=== PATIENT | female | born 1960 | race Caucasian/White ===

== ENCOUNTER → 2024-10-11 14:50 | Outpatient (REF) | payer MEDICARE, OTHER, SELFPAY | LOC: HWRAD 14:50 | PROVIDERS: ATTENDING PHYSICIAN Physician Assistant | DX: M79.672 Pain in left foot (principal) | CPT/HCPCS: 73630 ==

== ENCOUNTER → 2024-10-28 10:58 | Outpatient (REF) | payer MEDICARE, OTHER, SELFPAY | LOC: DHSLP 10:58 | PROVIDERS: ATTENDING PHYSICIAN Internal Medicine Critical Care Medicine; FAMILY PHYSICIAN Physician Assistant | DX: G47.33 Obstructive sleep apnea (adult) (pediatric) (principal) | CPT/HCPCS: 95800 ==

== ENCOUNTER → 2024-11-17 12:51 | Outpatient (REF) | payer MEDICARE, OTHER, SELFPAY | LOC: HWWDC 12:51 | PROVIDERS: ATTENDING PHYSICIAN Physician Assistant; REFERRING PHYSICIAN Obstetrics & Gynecology | DX: Z12.31 Encounter for screening mammogram for malignant neoplasm of breast (principal) | CPT/HCPCS: 77063; 77067 ==

== ENCOUNTER → 2025-06-29 12:59 | Outpatient (REF) | payer MEDICARE, OTHER, SELFPAY | LOC: HWCARD 12:59 | PROVIDERS: ATTENDING PHYSICIAN Student in an Organized Health Care Education/Training Program; FAMILY PHYSICIAN Physician Assistant | DX: Z01.818 Encounter for other preprocedural examination (principal) | CPT/HCPCS: 93005 ==

== ENCOUNTER → 2025-06-30 15:49 | Outpatient (REF) | payer MEDICARE, OTHER, SELFPAY | LOC: HWRAD 15:49 | PROVIDERS: ATTENDING PHYSICIAN Internal Medicine | DX: R05.1 Acute cough (principal); Z01.818 Encounter for other preprocedural examination | CPT/HCPCS: 71046 ==

== ENCOUNTER → 2025-07-06 15:13 | Outpatient (REF) | payer MEDICARE, OTHER, SELFPAY | LOC: HWRAD 15:13 | PROVIDERS: ATTENDING PHYSICIAN Anesthesiology; FAMILY PHYSICIAN Physician Assistant | DX: M54.16 Radiculopathy, lumbar region (principal) | CPT/HCPCS: 72100 ==

== ENCOUNTER 2025-07-07 23:45 | Inpatient (IN) | payer MEDICARE, OTHER, SELFPAY ==
[2025-07-07] VITALS (9 sets, daily range): BP systolic 115–173; BP diastolic 51–76
[2025-07-07] MEDS: TYLENOL 1000 MG PO (17:09)
[2025-07-07] MEDS: CELEBREX 200 MG PO (17:10)
[2025-07-07] MEDS: NORMOSOL-R/PLASMALYTE-A 1000 IV (17:12)
--- NOTE | 2025-07-07 22:36 | W.PN.SURGUPD ---
Surgical Update
Surgical Update
64 yo M s/p L tibialis anterior tendon repair with grafting
-Strict NWB to LLE
-PT/OT
-Multimodal analgesia, on morphine 30mg BID at home
-Posterior splint to remain C/D/I
-Ancef while admitted
-Can be discharged 07/08 or when appropriate
--- NOTE | 2025-07-07 22:41 | HPS.HSE ---
Addendum entered and electronically signed by Luigi Tavares MD 07/07/25 23:31:
This is an addendum to H&P written by Christine Westbrook on 07/07/2025. �Patient seen and examined independently with [employer].
64-year-old female past medical history of rheuumatoid arthritis, hypertension, hyperlipidemia, osteoarthritis, obesity, obstructive sleep apnea, breast cancer, varicose veins, depression, cervical spondylosis, fibromyalgia, GERD, who underwent left
tibialis anterior tendon repair today.
Strict nonweightbearing to left lower extremity in splint. �Continue Ancef while in hospital. �Pain control. �Continue morphine 30 twice daily. �As needed Dilaudid as needed. �PT/OT.
Hold Eliquis tonight.�
Original Note:
Family Physician
-
Family Physician: NO INTERVIEW UNKNOWN
Chief Complaint
-
L tibialis anterior tendon repair with grafting
History of Present Illness
Patient is a 64-year-old female with past medical history significant for hypertension, hyperlipidemia, hypothyroid, restless leg syndrome, depression, fibromyalgia, rheumatoid arthritis, GERD and GLORIA who presented to [facility] for elective L tibialis
anterior tendon repair with grafting with Dr. Lauren. Patient being admitted s/p surgical repair for pain control and physical therapy. Patient seen in PACU and remains lethargic.
Medical History
Past Medical History
Past Medical History: Reports Other
Additional Past Medical History:
hypertension
hyperlipidemia
hypothyroid
restless leg syndrome
depression
fibromyalgia
rheumatoid arthritis
GERD
GLORIA
Past Surgical History: Reports Other
Additional Past Surgical History:
cholecystectomy
LASIK
bunionectomy
D&C x3
bilateral knee surgeries
bilateral carpal tunnel release
right lumpectomy
left shoulder repair
Social History
Tobacco: Non-smoker
Family History
Family History: Not pertinent
Allergies / Home Medications
Allergies reflects when Allergies were last updated in [employer].
Home Medications with original date entered in [employer]
Allergy/Medication List:
Allergies
Allergy/AdvReac Type Severity Reaction Status Date / Time
acetaminophen (From Percocet) Allergy Unknown SEVERE Verified 07/07/25 16:44
PRURITUS
adhesive Allergy ERYTHEMA Verified 07/07/25 16:44
bupropion HCl (From Allergy SEIZURE Verified 07/07/25 16:44
Wellbutrin)
hydrocodone (Hydrocodone) Allergy PRURITUS Verified 07/07/25 16:44
lisinopril Allergy COUGH Verified 07/07/25 16:44
oxycodone Allergy PRURITUS Verified 07/07/25 16:44
oxycodone HCl (From Percocet) Allergy PRURITUS Verified 07/07/25 16:44
povidone-iodine (From Allergy ERYTHEMA, Verified 07/07/25 16:44
Betadine) PRURITUS
rosuvastatin calcium (From Allergy MYALGIA Verified 07/07/25 16:44
Crestor)
soap (From Betadine) Allergy ERYTHEMA, Verified 07/07/25 16:44
PRURITUS
Home Medications
loratadine 10 mg disintegrating tablet 10 mg PO DAILY 02/22/11
ezetimibe 10 mg tablet (Zetia) 10 mg PO DAILY 12/24/11
Medical Cannabis 1 unit PO PRN PRN PAIN 07/05/25
apixaban 5 mg tablet (Eliquis) 5 mg PO BID 07/05/25
leucovorin calcium 15 mg tablet 15 mg PO WEEKLY 07/05/25
levothyroxine 25 mcg tablet 25 mcg PO DAILY 07/05/25
methotrexate sodium 2.5 mg tablet 25 mg PO QWEEK 07/05/25
metoprolol succinate 50 mg tablet,extended release 24 hr 50 mg PO HS 07/05/25
morphine 30 mg tablet,extended release 30 mg PO Q12H 07/05/25
prednisone 5 mg tablet 5 mg PO HS 07/05/25
quetiapine 25 mg tablet 50 mg PO HS INSOMNIA 07/05/25
Review of Systems
-
Unable to obtain full review of systems at this time due to: Other (lethargic post anesthesia )
Physical Exam
Vital Signs
Vital Signs
Temp Pulse Resp BP Pulse Ox
98.5 F 72 16 133/62 95
07/07/25 16:57 07/07/25 18:58 07/07/25 18:58 07/07/25 18:58 07/07/25 18:58
Physical Exam
General: Well Developed, Well Nourished, No Apparent Distress and Obese
HEENT: NormoCephalic, Moist mucous membranes and Atraumatic
Respiratory: Clear and Non Labored Respirations; No Wheezes, Rales, Rhonchi or Crackles
Cardiac: S1/S2 and Regular Rhythm; No Murmur, Rub or Gallop
Breast: Deferred by me
GI: Soft, Non Tender, Non Distended and Normal Bowel Sounds; No Organomegaly
Rectal: Deferred by Provider
Genito-urinary: Deferred by me
Musculoskeletal: No Clubbing and No Cyanosis
Skin: Warm and IV/Catheter Site
Neuro: Awake, Nonfocal/grossly intact and Sedated
Psych: Calm and Intact Judgment/Insight
Impression/Plan
-
IMPRESSION/PLAN:
#L tibialis anterior tendon repair with grafting
- Admit to med/surg
- Consult Podiatry
- pain regimen
- Consult PT/OT
#hypertension
- continue metoprolol
#hyperlipidemia
- continue ezetimibe
#hypothyroid
- continue levothyroxine
#fibromyalgia
- continue morphine
#rheumatoid arthritis
- continue methotrexate and prednisone
#GLORIA
uses CPAP at home
#GERD
#restless leg syndrome
#depression
Code status: full code
DVT prophylaxis: SCDs
[2025-07-08] VITALS (9 sets, daily range): BP systolic 127–152; BP diastolic 57–79; PULSE 89; O2SAT 96
[2025-07-08] MEDS: MS CONTIN (EXTENDED RELEASE) 30 MG PO ×3 (00:57→22:10)
[2025-07-08] MEDS: DILAUDID 0.25 MG IV (01:06)
[2025-07-08] MEDS: FLUSH (NSS) 2 FLUSH IV ×2 (01:07→06:07)
--- NOTE | 2025-07-08 03:08 | PTCARENOTE ---
Patient received from PACU via bed. at bedside. She was oriented to room and surroundings. IV infusing. Nghia po intake. See nursing assessment for physical findings. VSS. Ax1 with RW to BSC. NWB LLE. Did well. SCD per order.
Splint cast with umang wrap C/D/I
[2025-07-08] MEDS: SYNTHROID 25 MCG PO (06:06)
[2025-07-08] MEDS: ANCEF 5 IV ×3 (06:06→21:15)
[2025-07-08 06:37] LABS: Hematocrit 38.3 % (37.0-47.0); Hemoglobin 12.6 g/dL (12.0-16.0); Mean Corp Hgb Conc. 32.9 g/dL (33.0-37.0); Mean Corpuscular Volume 97.5 fL (81.0-99.0); Platelet Count 220 10^3/uL (130-400); Red Cell Dist. Width 14.4 % (11.5-14.5)
[2025-07-08 07:34] LABS: Blood Urea Nitrogen 11 mg/dl (7-17); Calcium 8.7 mg/dl (8.4-10.2); Carbon Dioxide 28 mmol/L (22-30); Chloride 105 mmol/L (98-107); Estimated Creatinine Clearance 103 ml/min; Glucose 164 mg/dl (70-99); Potassium 4.6 mmol/L (3.5-5.1); Sodium 139 mmol/L (135-145); eGFR > 60.00
[2025-07-08] MEDS: CLARITIN 10 MG PO (08:46)
[2025-07-08] MEDS: ZETIA 10 MG PO (08:47)
--- NOTE | 2025-07-08 10:28 | W.PN.HOSP.TC ---
Today's Communication/Plan
-
DC planning
Assessment / Plan
Assessment / Plan
#L tibialis anterior tendon repair with grafting
- Continue with pain regimen
- Consult PT/OT-await assessment
#hypertension
- continue metoprolol
#hyperlipidemia
- continue ezetimibe
#hypothyroid
- continue levothyroxine
#fibromyalgia
- continue morphine
#rheumatoid arthritis
- continue methotrexate and prednisone
#GLORIA
uses CPAP at home
#GERD
#restless leg syndrome
#depression
Code status: full code
DVT prophylaxis: Subcu heparin
DVT prophylaxis on dc per ortho/podiatry
Medically stable for DC after PT/OT eval and Podiatry eval
Anticipated Discharge: Today
Subjective/Interval History
-
Date of Service: July 08, 2025
She feels okay.
Denies any shortness of breath, chest pain or lightheadedness.
Had some breakfast.
Pain from the left ankle surgical site is okay
Objective Data
-
Labs:
Laboratory Results
07/08/25
05:48
WBC 6.9
Hgb 12.6
Hct 38.3
Plt Count 220
Sodium 139
Potassium 4.6
Chloride 105
Carbon Dioxide 28
BUN 11
Creatinine 0.6
Glucose 164 H
Calcium 8.7
Vital Signs:
Vital Signs
Temp Pulse Resp BP Pulse Ox
98.4 F 75 16 131/62 94
07/08/25 07:58 07/08/25 07:58 07/08/25 07:58 07/08/25 07:58 07/08/25 09:05
I&O
07/07/25 07/08/25 07/09/25
06:59 06:59 06:59
Intake Total 2059
Balance 2059
Physical Exam
-
General: Comfortable
Respiratory: Clear to Auscultation and Non Labored Respirations; Negative Accessory Resp Muscle Use
Cardiac: Regular Rhythm and S1/S2
Neuro: AO x 3
Psych: Calm; Negative Confused
Data Reviewed
-
Labs: Labs Reviewed by me
[2025-07-08] MEDS: ZOFRAN ODT (ORALLY DISINTEGRATING) 4 MG PO (14:04)
[2025-07-08] MEDS: TYLENOL 650 MG PO (14:05)
[2025-07-08] MEDS: HEPARIN 5000 UNITS SC ×2 (16:37→23:05)
--- NOTE | 2025-07-08 17:08 | CM ---
Initial assessment completed via phone
Pharmacy verified: [facility] @ [address] [facility], [place]
Family Physician: Alexandra House; Address: [address] [place] [address], [place] [address];
Lives w/ spouse; multilevel home; Ramp to enter; in-law suite first floor; bath has shower stall w/ grab bar and seat
DME: CPAP; hospital bed; commode; WC
PLOF: was independent with ambulation and ADLs
No recent utilization Home Health or SNF history
will transport home
Agreeable to home health; options provided; [facility]
Plan: Discharge to home when medically stable with home health services
[2025-07-08] MEDS: SEROQUEL 50 MG PO (21:15)
[2025-07-08] MEDS: TOPROL XL 50 MG PO (21:15)
[2025-07-08] MEDS: DELTASONE 5 MG PO (21:15)
--- NOTE | 2025-07-08 23:36 | W.PN.SURGUPD ---
Surgical Update
Surgical Update
64 yo F s/p left tibialis anterior tendon repair with grafting
-Patient seen and evaluated at bedside, recovering well
-Pain is well controlled
-Posterior splint C/D/I
-Doing well with physical therapy
-To consider supplemental morphine for pain control on discharge. Also will need tylenol, gabapentin, zofran
-ASA for DVT prophylaxis
-OK for discharge, follow up at [facility] in 2 weeks
[2025-07-09] MEDS: SYNTHROID 25 MCG PO (05:20)
[2025-07-09] MEDS: ANCEF 5 IV ×3 (05:25→21:15)
[2025-07-09 07:20] VITALS: BP 162/75
[2025-07-09] MEDS: DILAUDID 0.5 MG IV (07:54)
[2025-07-09] MEDS: ZETIA 10 MG PO (10:36)
[2025-07-09] MEDS: HEPARIN 5000 UNITS SC (10:36)
[2025-07-09] MEDS: CLARITIN 10 MG PO (10:36)
[2025-07-09] MEDS: MS CONTIN (EXTENDED RELEASE) 30 MG PO ×2 (10:45→22:07)
--- NOTE | 2025-07-09 12:41 | CM ---
Addendum entered by Mirian Root 07/09/25 12:48:
VM left for VN to confirm discharge.
Original Note:
Patient seen at bedside on . Patient for discharge home today with VN to follow. Patient with questions, nursing aware. Patient completed imm and signed form placed on chart. Patient family to provide transportation. Patient with concerns
nursing aware, patient asking for OT assessment. CM will continue to follow for discharge planning needs.
Plan;home with [facility]
[2025-07-09 13:18] VITALS: BP 169/79; PULSE 77; O2SAT 96
[2025-07-09 13:38] LABS: Hematocrit 39.4 % (37.0-47.0); Hemoglobin 13.3 g/dL (12.0-16.0); Mean Corp Hgb Conc. 33.8 g/dL (33.0-37.0); Mean Corpuscular Volume 98.3 fL (81.0-99.0); Platelet Count 193 10^3/uL (130-400); Red Cell Dist. Width 14.8 % (11.5-14.5)
--- NOTE | 2025-07-09 13:55 | W.PN.HOSP.TC ---
Today's Communication/Plan
-
Continue with IV Ancef and follow fever curve
Started on her Eliquis
Assessment / Plan
Assessment / Plan
#L tibialis anterior tendon repair with grafting
- Continue with pain regimen
- Consult PT/OT-recommend home health
- Patient on chronic morphine. Consider breakthrough pain medicine on discharge. Allergies noted to multiple narcotics. Consider Dilaudid oral on discharge
- Low-grade fever noted today. Continue with Ancef which is prescribed. White count is okay today. Continue to follow today and if no further fevers or any new issues DC in a.m.
#hypertension
- continue metoprolol
#hyperlipidemia
- continue ezetimibe
#hypothyroid
- continue levothyroxine
#fibromyalgia
- continue morphine
#rheumatoid arthritis
- continue methotrexate and prednisone
#GLORIA
uses CPAP at home
# History of DVT-was on Eliquis 2.5 mg. Apparently was told by her oncologist to go up to 5 mg twice daily
#GERD
#restless leg syndrome
#depression
Code status: full code
DVT prophylaxis: Eliquis
Anticipated Discharge: Within 24 hours
Subjective/Interval History
-
Date of Service: July 09, 2025
Has a low-grade temp 100.2. She just does not feel generally well. No sweats or chills.
Denies any shortness of breath or chest pain.
No nausea vomiting.
Left ankle pain control is okay.
Objective Data
-
Labs:
Laboratory Results
07/09/25 07/09/25
13:19 13:46
WBC 10.8
Hgb 13.3
Hct 39.4
Plt Count 193
Sodium Cancelled Pending
Potassium Cancelled Pending
Chloride Cancelled Pending
Carbon Dioxide Cancelled Pending
BUN Cancelled Pending
Creatinine Cancelled Pending
Glucose Cancelled Pending
Calcium Cancelled Pending
Vital Signs:
Vital Signs
Temp Pulse Resp BP Pulse Ox
100.2 F 70 18 162/75 97
07/09/25 11:22 07/09/25 07:20 07/09/25 07:20 07/09/25 07:20 07/09/25 07:20
I&O
07/08/25 07/09/25 07/10/25
06:59 06:59 06:59
Intake Total 2059 1200 / 1200 480 / 480
Balance 2059 1200 / 1200 480 / 480
Physical Exam
-
General: Comfortable
Respiratory: Non Labored Respirations; Negative Accessory Resp Muscle Use
Cardiac: Regular Rhythm and S1/S2; Negative Tachycardic
Neuro: AO x 3
Psych: Calm; Negative Confused
Data Reviewed
-
Labs: Labs Reviewed by me
[2025-07-09 14:42] LABS: Blood Urea Nitrogen 16 mg/dl (7-17); Calcium 9.0 mg/dl (8.4-10.2); Carbon Dioxide 30 mmol/L (22-30); Chloride 104 mmol/L (98-107); Estimated Creatinine Clearance 88 ml/min; Glucose 129 mg/dl (70-99); Potassium 3.9 mmol/L (3.5-5.1); Sodium 139 mmol/L (135-145); eGFR > 60.00
[2025-07-09 15:15] VITALS: BP 178/70
[2025-07-09 16:01] VITALS: BP 149/62
[2025-07-09] MEDS: TYLENOL 650 MG PO ×2 (16:21→20:45)
[2025-07-09 17:01] LABS: Urine Character Clear (Clear)
[2025-07-09 17:14] LABS: Urine Red Blood Cell 0-2 /HPF (0-2); Urine Squamous Cell 16-20 /LPF (Few)
--- NOTE | 2025-07-09 17:46 | OR.RPT ---
Operative Report
Operative Report
Patient Name:�Clarita Beck
Medical Record Number:�[id number]
Date of Surgery:�07/07/2025
Surgeon:�Luis E Lauren DPM
Assistants:�Luis E Ott DPM
Preoperative Diagnosis:
Left tibialis anterior tendon rupture
Postoperative Diagnosis:
Same as preoperative
Procedure Performed:
Reconstruction of tibialis anterior tendon using cadaveric tibialis anterior tendon allograft CPT 26809
Anesthesia:�General with regional block
Hemostasis:�Thigh tourniquet at 300mmHg which remained inflated for the entirety of the procedure
Estimated Blood Loss:�<50 mL
Implants:
Cadaveric tibialis anterior tendon allograft
Arthrex Bio-Tenodesis screw 4.75mm
#0 FiberLoop suture
Materials:�2-0 vicryl, 3-0 vicryl, 3-0 prolene
Complications: None
Indications for Procedure:
The patient is a 64 year old female who sustained a subacute rupture of the left tibialis anterior tendon approximately 1 month ago, with proximal retraction to the level of the extensor retinaculum. No distal insertion stump was identifiable. This
was confirmed by MRI. Because of the lack of a viable distal attachment and significant tendon retraction, primary repair was not possible. Reconstruction using a cadaveric tibialis anterior tendon graft was indicated to restore dorsiflexion
strength and gait function. Risks, benefits, and alternatives were discussed with the patient, and informed consent was obtained.
Description of Procedure:
The patient was brought to the operating room and placed supine on the operating table. Following induction of anesthesia, the left lower extremity was prepped and draped in the usual sterile manner. A thigh tourniquet was applied and inflated after
exsanguination.
A longitudinal incision was made over the anteromedial ankle extending to the medial cuneiform, exposing the tibialis anterior tendon sheath. Intraoperative inspection confirmed �rupture of the tibialis anterior tendon, with the tendon retracted to
the level of the extensor retinaculum and no distal insertional stump present at the kaltag insertion.
The retracted tendon was retrieved and mobilized proximally. The frayed edges were sharply debrided until healthy tendon tissue was visualized. A cadaveric tibialis anterior tendon allograft was prepared on the back table. Using a #0 FiberLoop
suture in whip-stitch fashion, the cadaveric tendon graft was tenodesed to the distal portion of the kaltag tibialis anterior tendon under appropriate tension.
Attention was turned to the medial cuneiform, where a ems helicopter pilot hole was created at the dorsal aspect of the bone. The free distal end of the cadaveric tendon was secured into the medial cuneiform using an appropriately sized (4.75mm) Arthrex
Bio-Tenodesis screw, achieving excellent fixation.
The construct was tested through a full range of ankle motion and demonstrated good tension, stability, and bahai of the line of pull of the tibialis anterior.
The wound was thoroughly irrigated with sterile saline. Hemostasis was achieved. The tendon sheath was reapproximated using 2-0 vicryl, followed by layered closure of subcutaneous tissues with 3-0 vicryl and skin with 3-0 prolene. Sterile dressings
were applied, and the extremity was immobilized in a well-padded splint with the ankle in slight dorsiflexion. The patient tolerated the procedure well. She was aroused from anesthesia and taken to the recovery room in good condition. She will be
post-operatively admitted for pain control and physical therapy. She will remain on antibiotics for roughly 24 hours while admitted. She will be strictly non-weightbearing to the left lower extremity and will follow up in the office in 2 weeks for
an incision check.
[2025-07-09] MEDS: ELIQUIS 5 MG PO (20:25)
[2025-07-09] MEDS: DELTASONE 5 MG PO (21:14)
[2025-07-09] MEDS: SEROQUEL 50 MG PO (21:14)
[2025-07-09] MEDS: TOPROL XL 50 MG PO (21:15)
[2025-07-09 23:07] VITALS: BP 100/42
[2025-07-09 23:15] VITALS: BP 136/55
[2025-07-10] MEDS: SYNTHROID 25 MCG PO (05:02)
[2025-07-10] MEDS: ANCEF 5 IV (05:03)
--- NOTE | 2025-07-10 06:29 | PTCARENOTE ---
07/09/25 pt developed at fever 102.1 shivering with chills, placed CPAP with 2l to sleep., reexamine leg. + popiteal pulses,+ sensation no increased pain in calf or drainage on the dressage, notified Robin Alonso. UA/CS ordered. fever up to 103.1,
recheck after APAP 101.1
[2025-07-10 07:32] LABS: Hematocrit 38.9 % (37.0-47.0); Hemoglobin 12.8 g/dL (12.0-16.0); Mean Corp Hgb Conc. 32.9 g/dL (33.0-37.0); Mean Corpuscular Volume 96.8 fL (81.0-99.0); Platelet Count 156 10^3/uL (130-400); Red Cell Dist. Width 15.2 % (11.5-14.5)
[2025-07-10 08:25] VITALS: BP 162/60
[2025-07-10] MEDS: ZETIA 10 MG PO (08:54)
[2025-07-10] MEDS: CLARITIN 10 MG PO (08:54)
[2025-07-10] MEDS: ELIQUIS 5 MG PO ×2 (08:54→19:58)
[2025-07-10] MEDS: TYLENOL 650 MG PO ×3 (08:55→18:26)
--- NOTE | 2025-07-10 10:24 | PHA.VAN.IN ---
Assessment
- Assessment
Renal Function: Appears similar to baseline
Maximum Temperature: 103.1 F
AUC Dosing Plan
- Dosing Variables
Dosing Weight (kg): 90
Dosing CrCl (ml/min): 88
Vd coefficient (L/kg): 0.7
- Empiric Dosing
Initial / Loading Dose: VANCO 2000MG X1
Maintenance Regimen: VANCO 1000MG Q12H
Estimated AUC (mcg*h/mL): 426
Estimated Peak (mcg*h/mL): 26.2
Estimated Trough (mcg/ml): 11.2
Estimated Half Life (H): 8.9
- Monitoring
No levels ordered at this time: CONSIDER LEVELS AT STEADY STATE
Pharmacokinetics Vancomycin I
- -
Patient Age: 64
Patient Sex: Female
Vancomycin Day #: 1
Indication: Skin And Soft Tissue
Requesting Provider: DR. BABCOCK
Height / Weight:
Height 5 ft 5.25 in
Actual Weight 89.811 kg
Adjusted BW in k
Pertinent Past Medical History: BMI 33
- Vital Signs / Lab Results
Temp Pulse Resp BP Pulse Ox
101 F H 77 16 162/60 96
07/10/25 09:58 07/10/25 08:25 07/10/25 08:25 07/10/25 08:25 07/10/25 08:25
Lab Results - Hematology
07/08/25 07/09/25 07/10/25
05:48 13:19 06:50
WBC 6.9 10.8 4.6 L
Lab Results - Chemistry
07/08/25 07/09/25 07/09/25
05:48 13:19 14:20
BUN 11 Cancelled 16
Creatinine 0.6 Cancelled 0.7
Estimated Creat Clear 103 Cancelled 88
Lab Results - Urine
07/09/25
16:48
Urine Nitrite (Reflex) Negative
Leukocyte Esterase Rfl 1+ A
Urine WBC (Reflex) 3-5
Ur Squamous Epith Cells 16-20
Urine Bacteria (Reflex) Few A
[2025-07-10 10:38] LABS: ALT (SGPT) 47 U/L (0-35); AST (SGOT) 44 U/L (14-36); Albumin 4.0 g/dl (3.5-5.0); Alkaline Phosphatase 65 U/L (38-126); Total Protein 6.5 g/dl (6.3-8.2)
[2025-07-10] MEDS: ZOFRAN ODT (ORALLY DISINTEGRATING) 4 MG PO (11:40)
[2025-07-10] MEDS: VANCOCIN 540 MG IV (11:40)
[2025-07-10] MEDS: MS CONTIN (EXTENDED RELEASE) 30 MG PO ×2 (11:40→22:22)
--- NOTE | 2025-07-10 12:07 | W.PN.HOSP.TC ---
Today's Communication/Plan
-
Obtain chest x-ray. Check blood cultures. Check LFTs
Check COVID and flu.
Switch antibiotics to Zosyn and vancomycin until culture data is back. [employer] to review the left foot surgical wound.
Assessment / Plan
Assessment / Plan
#L tibialis anterior tendon repair with grafting
- Continue with pain regimen
- Consult PT/OT-recommend home health
- Patient on chronic morphine. Consider breakthrough pain medicine on discharge. Allergies noted to multiple narcotics. Consider Dilaudid oral on discharge
# Post op fever - since yesterday . UA doesn't suggest UTI. Check CXR, blood cx and due to non specific symptoms will also check COVID/Flu . If all neg CT A/P . Will change antibiotics to Zosyn and vancomycin for now. [employer] made aware about
new fever; podiatry to review the wound
#hypertension
- continue metoprolol . Mostly under goal with occasional high. Follow for now. Prn hydralazine will be added.
#hyperlipidemia
- continue ezetimibe
#hypothyroid
- continue levothyroxine
#fibromyalgia
- continue morphine
#rheumatoid arthritis
- continue methotrexate and prednisone
#GLORIA
uses CPAP at home
# History of DVT-was on Eliquis 2.5 mg. Apparently was told by her oncologist to go up to 5 mg twice daily
#GERD
#restless leg syndrome
#depression
Code status: full code
DVT prophylaxis: Eliquis
Anticipated Discharge: > 48 hours
Subjective/Interval History
-
Date of Service: July 10, 2025
Patient still with ongoing fevers. She just feels unwell. Feels weaker.
No sinus symptoms. Denies any sore throat. Denies any cough or shortness of breath.
Nauseous today. No abdominal pain. Denies any diarrhea. Denies any dysuria or frequency of urine.
Denies pain discharge from the left ankle incisions area.
Objective Data
-
Labs:
Laboratory Results
07/09/25 07/10/25
14:20 06:50
WBC 4.6 L
Hgb 12.8
Hct 38.9
Plt Count 156
Total Bilirubin 0.6
AST 44 H
ALT 47 H
Alkaline Phosphatase 65
Vital Signs:
Vital Signs
Temp Pulse Resp BP Pulse Ox
101 F H 77 16 162/60 96
07/10/25 09:58 07/10/25 08:25 07/10/25 08:25 07/10/25 08:25 07/10/25 08:25
I&O
07/09/25 07/10/25 07/11/25
06:59 06:59 06:59
Intake Total 1200 / 1200 1680 / 1680
Balance 1200 / 1200 1680 / 1680
Physical Exam
-
General: Comfortable
Respiratory: Clear to Auscultation and Non Labored Respirations; Negative Accessory Resp Muscle Use
Cardiac: Regular Rhythm and S1/S2; Negative Tachycardic
GI: Soft, Nondistended, Normal Bowel Sounds and Tender (some discomfort in LUQ and left abdomen but no rebound or guarding)
Musculoskeletal: Other (left leg in surgical dressing)
Neuro: AO x 3
Psych: Calm
Data Reviewed
-
Labs: Labs Reviewed by me
[2025-07-10 13:13] LABS: COVID-19 Antigen Negative (Negative)
[2025-07-10 13:22] VITALS: BP 145/57
[2025-07-10] MEDS: NSS 1000 IV (13:57)
[2025-07-10] MEDS: OMNIPAQUE 50 ML PO (13:57)
[2025-07-10 15:05] VITALS: BP 140/62; PULSE 80; O2SAT 98
[2025-07-10 15:10] VITALS: BP 152/53
--- NOTE | 2025-07-10 15:36 | PTCARENOTE ---
completed contrast drinks
[2025-07-10] MEDS: VANCOCIN 200 IV (17:11)
--- NOTE | 2025-07-10 17:57 | PTCARENOTE ---
TT with Dr. Kelly regarding pt remaining febrile 101.1 to 103. still today. pt is lethargic this AM, lungs CTA, no SOB or ROWE no cough. Dr. Kelly ordered additional test and labs. ABT started. Reaching out to Dr. Lauren to see if he needed to
evaluate leg today for source of fever. He will take down dressing tomorrow. Has not c/o leg pain and do not assess any redness or drainage on dressing but cannot visual incision site. No calf tenderness
[2025-07-10] MEDS: DILAUDID 0.5 MG IV (18:30)
[2025-07-10] MEDS: NON-FORMULARY ITEM 1 UNIT PO (18:45)
[2025-07-10] MEDS: DELTASONE 5 MG PO (22:19)
[2025-07-10] MEDS: SEROQUEL 50 MG PO (22:19)
[2025-07-10] MEDS: TOPROL XL 50 MG PO (22:22)
[2025-07-10 23:00] VITALS: BP 121/51
[2025-07-11] MEDS: NSS 1000 IV (04:39)
[2025-07-11] MEDS: SYNTHROID 25 MCG PO (06:12)
[2025-07-11] MEDS: VANCOCIN 200 IV (06:12)
[2025-07-11 07:30] VITALS: BP 133/54
--- NOTE | 2025-07-11 07:56 | W.PN.SURGUPD ---
Surgical Update
Surgical Update
64 yo F s/p left tibialis anterior tendon rupture repair with cadaveric graft
-Patient persistent fevers over the weekend ranged from 101 to 103. No obvious signs of infection at this time
-Patient seen and evaluated at bedside. Posterior splint and dressings remained and incision inspected
-Incision well coapted with absolutely no signs of infection. No erythema, fluctuance, crepitus, purulence, or wound opens
-No pain upon calf compression, no signs of DVT
-Re-applied DSD and posterior splint
-Continue antibiotics and will closely monitor
-Continue strict NWB to LLE
[2025-07-11 08:01] LABS: ALT (SGPT) 91 U/L (0-35); AST (SGOT) 96 U/L (14-36); Albumin 3.0 g/dl (3.5-5.0); Alkaline Phosphatase 60 U/L (38-126); Blood Urea Nitrogen 7 mg/dl (7-17); Calcium 8.3 mg/dl (8.4-10.2); Carbon Dioxide 30 mmol/L (22-30); Chloride 103 mmol/L (98-107); Estimated Creatinine Clearance 103 ml/min; Glucose 126 mg/dl (70-99); Potassium 4.1 mmol/L (3.5-5.1); Sodium 133 mmol/L (135-145); Total Protein 5.4 g/dl (6.3-8.2); eGFR > 60.00
[2025-07-11 08:25] LABS: Hematocrit 38.0 % (37.0-47.0); Hemoglobin 12.5 g/dL (12.0-16.0); Mean Corp Hgb Conc. 32.9 g/dL (33.0-37.0); Mean Corpuscular Volume 96.7 fL (81.0-99.0); Platelet Count 95 10^3/uL (130-400); Red Cell Dist. Width 15.1 % (11.5-14.5)
[2025-07-11] MEDS: CLARITIN 10 MG PO (09:23)
[2025-07-11] MEDS: ZETIA 10 MG PO (09:23)
[2025-07-11] MEDS: NON-FORMULARY ITEM 1 UNIT PO ×2 (09:23→15:42)
[2025-07-11] MEDS: ELIQUIS 5 MG PO ×2 (09:23→20:25)
[2025-07-11 11:05] VITALS: BP 140/57; PULSE 76; O2SAT 96
--- NOTE | 2025-07-11 11:15 | W.PN.HOSP.TC ---
Today's Communication/Plan
-
Follow-up on the culture data
Tylenol for fever
monitor temperature curve
ID input
Assessment / Plan
Assessment / Plan
#L tibialis anterior tendon rupture repair with cadaveric graft
- Continue with pain regimen
- Consult PT/OT-recommend home health
- Patient on chronic morphine. Consider breakthrough pain medicine on discharge. Allergies noted to multiple narcotics.
# Post op fever -
-urine culture no growth.
- Chest x-ray with atelectasis. No infiltrate. Denies any cough.
- Blood cultures remain negative. Influenza negative. COVID-negative.
- CT abdomen pelvis noted without any abscess.
- Discussed with surgery and surgical site deemed not infected currently.
- Patient was prophylactically started on antibiotics and continues to spike fever.
-Unclear if inflammatory response as underwent extensive surgery. Check ESR/CRP.
-No severe RLE edema. Doubt DVT as has already on anticoagulation. Drug fever is a possibility. Not on Lovenox.
- Will ask ID input
# Acute thrombocytopenia
- Likely second inflammatory response versus infection related
- Drop in platelet noted. Continue to monitor.
#hypertension
- continue metoprolol . Mostly under goal with occasional high. Follow for now.
#hyperlipidemia
- continue ezetimibe
#hypothyroid
- continue levothyroxine
#fibromyalgia
- continue morphine
#rheumatoid arthritis
- continue methotrexate and prednisone
#GLORIA
uses CPAP at home
# History of DVT-continue Eliquis
#GERD
#restless leg syndrome
#depression
Code status: full code
DVT prophylaxis: Eliquis
Anticipated Discharge: > 48 hours
Subjective/Interval History
-
Date of Service: July 11, 2025
Had bowel movements earlier today
Denies any cough. Denies any rash.
Denies any dysuria.
Denies any abdominal pain. Denies any nausea.
Spiked fever earlier today.
States she is using her CPAP machine at nighttime
Objective Data
-
Labs:
Laboratory Results
07/11/25
06:52
WBC 3.9 L
Hgb 12.5
Hct 38.0
Plt Count 95 L D
Sodium 133 L
Potassium 4.1
Chloride 103
Carbon Dioxide 30
BUN 7
Creatinine 0.6
Glucose 126 H
Calcium 8.3 L
Total Bilirubin 0.9
AST 96 H
ALT 91 H
Alkaline Phosphatase 60
Vital Signs:
Vital Signs
Temp Pulse Resp BP Pulse Ox
102.4 F H 76 18 133/54 95
07/11/25 11:04 07/11/25 07:30 07/11/25 07:30 07/11/25 07:30 07/11/25 07:30
I&O
07/10/25 07/11/25 07/12/25
06:59 06:59 06:59
Intake Total 1680 / 1680 1700 / 1700
Output Total 200 / 200
Balance 1480 / 1480 1700 / 1700
Physical Exam
-
General: Well Developed, Well Nourished, No Apparent Distress and Comfortable
HEENT: Normocephalic, Atraumatic and Moist Mucous Membranes
Respiratory: Clear to Auscultation and Non Labored Respirations; Negative Accessory Resp Muscle Use
Cardiac: Regular Rhythm and S1/S2; Negative Tachycardic
GI: Soft, Nondistended and Normal Bowel Sounds
Musculoskeletal: Other (left leg in surgical dressing)
Neuro: Awake, Alert, Oriented, AO x 3 and No Motor Deficits
Psych: Calm
Data Reviewed
-
Total Time Spent with Patient (in minutes): 55
[2025-07-11] MEDS: MS CONTIN (EXTENDED RELEASE) 30 MG PO ×2 (11:30→22:25)
[2025-07-11] MEDS: TYLENOL 650 MG PO ×2 (11:30→15:41)
--- NOTE | 2025-07-11 12:47 | CON.ID ---
Consultation
-
Date/Time Consultation Requested: 07/11/25 0816
Date/Time Consultation Performed: 07/11/2025 1250
Requesting Provider: Dr. Cuevas
Performing Provider: Dr. Coleman
Reason for Consultation: Fever
Chief Complaint / Past History
History of Present Illness
Clarita Beck is a 64-year-old female being evaluated at the request of Dr. Cuevas in regards to fever. History is obtained from chart review, along with patient interview.
The patient reports that she has been dealing with left foot issues for several months and recently was in [place] on vacation when she sustained a tear of the left tibialis tendon. She returned from [place] around 06/11 and has been following with
Podiatry. She was brought to [facility] on 07/07, and underwent left tibialis tendon repair. 48 hours ago, she developed fever to 102.6, and has had intermittent spiking temperatures since. Infectious Diseases asked to comment upon further
workup.
At this initiation of fevers, she had been on cefazolin for approximately 48 to 72 hours. She has since been broadened to vancomycin and Ancef discontinued.
She reports that she does feel a fevers with noted sweats and feeling unwell. She denies any other pain. She denies any specific pain in the left foot area. She denies any chest pain, cough or congestion. No known sick contacts. She denies any
dysuria.
Past History
Additional Past Medical History:
RA
HTN
HLD
OA
GLORIA
Hx breast CA depression
Additional Past Surgical History:
Bilateral knee replacement
Cholecystectomy
LASEK surgery
Bunionectomy
D&C x 3
Right lumpectomy
Left shoulder surgery
Allergy History:
acetaminophen (From Percocet) Allergy (Unknown, Verified 07/07/25 16:44)
SEVERE PRURITUS
adhesive Allergy (Verified 07/07/25 16:44)
ERYTHEMA
bupropion HCl (From Wellbutrin) Allergy (Verified 07/07/25 16:44)
SEIZURE
hydrocodone (Hydrocodone) Allergy (Verified 07/07/25 16:44)
PRURITUS
lisinopril Allergy (Verified 07/07/25 16:44)
COUGH
oxycodone Allergy (Verified 07/07/25 16:44)
PRURITUS
oxycodone HCl (From Percocet) Allergy (Verified 07/07/25 16:44)
PRURITUS
povidone-iodine (From Betadine) Allergy (Verified 07/07/25 16:44)
ERYTHEMA, PRURITUS
rosuvastatin calcium (From Crestor) Allergy (Verified 07/07/25 16:44)
MYALGIA
soap (From Betadine) Allergy (Verified 07/07/25 16:44)
ERYTHEMA, PRURITUS
Medications Reviewed: Yes
Current Antibiotics:
Vancomycin (07/10�present)
Previously on cefazolin (07/07 - 07/09)
Social History
Tobacco: Non-Smoker
Alcohol: None
Drug: None
Personal:
Living: With Family
Employment: Retired
Family History
Family History: Not Pertinent
Review of Systems
Vital Signs
Temp Pulse Resp BP Pulse Ox
102.4 F H 76 18 133/54 95
07/11/25 11:04 07/11/25 07:30 07/11/25 07:30 07/11/25 07:30 07/11/25 07:30
Physical Exam
Physical Exam
Constitutional: No Acute Distress, Comfortable and Non-toxic
Head: Normocephalic
Eyes: Pupils Equal, Pupils Round, No Conjunctival Hemorrhage and Sclera Anicteric
Oral: No Thrush and No Ulcers
Cardiovascular: Regular Rate and S1/S2; Negative S3/S4 or Murmur
Pulmonary: Clear; Negative Wheezes, Rales or Rhonchi
Gastrointestinal: Soft, Non Tender, Non Distended, Normal Bowel Sounds, No Rebound and No Guarding
Genito-Urinary: Negative Qiu
Extremities: Negative Clubbing, Cyanosis or Erythema
Wound: Other (Left foot in Glen wrap and splinted.)
Neurological: Awake and Alert
Psychological: Calm
.
Lab / Diagnostic Study Results
07/11/25 06:52
07/11/25 06:52
Ur Squamous Epith Cells 16-20 /LPF (Few) 07/09/25 16:48
Microbiology Results
Micro:
07/10/25 10:55 Blood Culture - Preliminary
Blood/Venous No Growth in 24 hours- Final report to follow
07/10/25 10:21 Blood Culture - Preliminary
Blood/Venous No Growth in 24 hours- Final report to follow
07/09/25 16:48 Urine Culture - Final
Urine NO GROWTH
07/10/25 12:39 Influenza Types A & B (XENIA) - Final
Nasal Swab Negative for Influenza A & B, NAAT
Negative results must be combined with clinical observations
and patient history.
Nucleic Acid Amplification test (NAAT)performed on the
[employer] NOW platform.
07/10/25 COVID-19 Ag - Negative
Imaging:
07/10/2025 CT abdomen/pelvis with contrast: no significant acute abnormalities identified in the abdomen or pelvis. Please see full dictation for additional detail.
07/10/2025 CXR (2 view): no parenchymal opacification or vascular congestion. Please see full dictation for additional detail.
Assessment / Plan
Postop fever
S/p left tibialis tendon repair (07/07/2022)
Mild leukopenia
Mild elevation in LFTs
RA
HTN
HLD
OA
GLORIA
Hx breast CA
Depression
Recommendations:
Exam is nonrevealing for any infectious process.
Lack of white count speaks against an acute infection.
Suspect fever may be secondary to drug fever (cefazolin)
Discontinue further antibiotics for now.
Monitor temperature curve. Patient may still have fever for the next 24 to 48 hours; would watch closely.
Trend white count, platelets, LFTs.
--- NOTE | 2025-07-11 14:28 | CM ---
Addendum entered by Chaitanya Gaffney 07/11/25 14:33:
IMM reviewed, placed on chart, pt has a copy.
Original Note:
CM following re: discharge planning.
Reviewed pt's chart, met with pt and pt's at bedside.
Pt is s/p left tibialis anterior tendon rupture repair with cadaveric graft. Continue supportive care, strict NWB to LLE
PT and OT evaluations noted - Home PT/OT recommended. A referral to [facility] noted.
[facility] discharge instructions fax: [phone]
D/c plan: home with [facility] and family support.
CM will follow with discharge plan updates as hospitalization progresses
[2025-07-11 15:28] VITALS: BP 128/68
--- NOTE | 2025-07-11 16:38 | PN.CDI ---
CDI
- -
CDI:
Physician Documentation Request
Admit Date: 07/07/25 23:45
Dear Doctor Faith,
Clinical Indicators:
Patient admitted with left tibialis anterior tendon rupture; s/p repair 07/07.
Home medications include:Morphine 30 mg tablet,extended release 30 mg PO Q12H
07/11 PN, 'Patient on chronic morphine. Consider breakthrough pain medicine on discharge...Consider Dilaudid oral on discharge'
Based on the above, could you clarify in the progress notes, the appropriate diagnosis, if significant, that supports the above medication usage:
Opioid use with dependence
Opioid use only
Other
Use of terms such as suspected, likely, concern for, or probable (associated with a specific diagnosis that is being evaluated, monitored, or treated as if it exists) are acceptable and can be coded in the inpatient setting, when documented at the
time of discharge.
Thank you,
JOSE Gaona RN
CDI Specialist
available via tiger text
Please use your independent medical judgment in providing your response.
[2025-07-11] MEDS: DILAUDID 0.5 MG IV (18:28)
[2025-07-11] MEDS: DELTASONE 5 MG PO (22:17)
[2025-07-11] MEDS: TOPROL XL 50 MG PO (22:17)
[2025-07-11] MEDS: SEROQUEL 50 MG PO (22:17)
[2025-07-12] MEDS: TYLENOL 650 MG PO ×3 (01:37→20:53)
[2025-07-12] MEDS: SYNTHROID 25 MCG PO (06:06)
[2025-07-12 07:13] LABS: Blood Urea Nitrogen 6 mg/dl (7-17); Calcium 8.7 mg/dl (8.4-10.2); Carbon Dioxide 29 mmol/L (22-30); Chloride 106 mmol/L (98-107); Estimated Creatinine Clearance 103 ml/min; Glucose 119 mg/dl (70-99); Potassium 3.8 mmol/L (3.5-5.1); Sodium 139 mmol/L (135-145); eGFR > 60.00
[2025-07-12 07:17] LABS: Hematocrit 37.2 % (37.0-47.0); Hemoglobin 12.5 g/dL (12.0-16.0); Mean Corp Hgb Conc. 33.6 g/dL (33.0-37.0); Mean Corpuscular Volume 94.2 fL (81.0-99.0); Platelet Count 86 10^3/uL (130-400); Red Cell Dist. Width 14.8 % (11.5-14.5)
[2025-07-12 07:18] LABS: C-Reactive Protein 55.30 mg/L (0.0-10.00)
[2025-07-12 07:34] VITALS: BP 135/63
[2025-07-12 08:42] LABS: Nucleated Red Blood Cells % 0 %
[2025-07-12] MEDS: CLARITIN 10 MG PO (09:25)
[2025-07-12] MEDS: ELIQUIS 5 MG PO ×2 (09:25→20:53)
[2025-07-12] MEDS: ZETIA 10 MG PO (09:25)
[2025-07-12] MEDS: NON-FORMULARY ITEM 1 UNIT PO ×2 (09:26→17:29)
--- NOTE | 2025-07-12 09:31 | W.PN.ID1 ---
Date of Service
Date of Service: July 12, 2025
Today's Communication
Observe off antibiotics.
Assessment / Plan
Postop fever
S/p left tibialis tendon repair (07/07/2022)
Mild leukopenia
Mild elevation in LFTs
RA
HTN
HLD
OA
GLORIA
Hx breast CA
Depression
Recommendations:
Exam remains nonrevealing for any infectious process.
Temperature curve overall improving although slowly.
Lack of white count speaks against an acute infection.
Suspect fever may have been secondary to drug fever (cefazolin), although cannot rule out other medications at this time.
Observe off antibiotics.
Monitor temperature curve. Patient may still have fever for the next 24 to 48 hours; would watch closely.
Trend white count, platelets, LFTs.
Chief Complaint
-: Fever
Subjective / Review of Systems
Patient seen and examined. Denies any pain in the left leg. Notes ongoing fevers. Reports not feeling great, but no focal discomfort.
Vital Signs / Physical Exam
Vital Signs
Vital Signs
Temp Pulse Resp BP Pulse Ox
97.5 F 58 17 135/63 97
07/12/25 07:34 07/12/25 07:34 07/12/25 07:34 07/12/25 07:34 07/12/25 07:34
Physical Exam
Constitutional: No Acute Distress, Comfortable and Non-toxic
Cardiovascular: S1/S2; Negative S3/S4
Pulmonary: Non Labored
Gastrointestinal: Soft, Non Tender and Non Distended
Musculoskeletal: Other (Left leg/foot in splint and wrapped in Glen wrap.)
Skin: Negative Rash or Jaundice
Neurological: Awake and Alert
Psychological: Calm
Objective Data
Lab Data
Lab Results
07/12/25 06:17
07/12/25 06:17
ESR 20 mm/hour (0-20) 07/12/25 06:17
Estimated Creat Clear 103 ml/min 07/12/25 06:17
Total Bilirubin 0.9 mg/dl (0.2-1.3) 07/11/25 06:52
AST 96 U/L (14-36) H 07/11/25 06:52
ALT 91 U/L (0-35) H 07/11/25 06:52
Alkaline Phosphatase 60 U/L (38-126) 07/11/25 06:52
C-Reactive Protein 55.30 mg/L (0.0-10.00) H 07/12/25 06:17
Most recent labs reviewed.
Micro Results:
07/10/25 10:55 Blood Culture - Preliminary
Blood/Venous No Growth in 24 hours- Final report to follow
07/10/25 10:21 Blood Culture - Preliminary
Blood/Venous No Growth in 24 hours- Final report to follow
07/09/25 16:48 Urine Culture - Final
Urine NO GROWTH
07/10/25 12:39 Influenza Types A & B (XENIA) - Final
Nasal Swab Negative for Influenza A & B, NAAT
Negative results must be combined with clinical observations
and patient history.
Nucleic Acid Amplification test (NAAT)performed on the
[email or web address] platform.
Imaging:
07/10/2025 CT abdomen/pelvis with contrast: no significant acute abnormalities identified in the abdomen or pelvis. Please see full dictation for additional detail.
07/10/2025 CXR (2 view): no parenchymal opacification or vascular congestion. Please see full dictation for additional detail.
--- NOTE | 2025-07-12 10:56 | W.PN.HOSP.TC ---
Today's Communication/Plan
-
Monitor platelets
Monitor fever/temperature curve
Monitor off antibiotics
Assessment / Plan
Assessment / Plan
General: Well Developed, Well Nourished, No Apparent Distress and Comfortable
HEENT: Normocephalic, Atraumatic and Moist Mucous Membranes
Respiratory: Clear to Auscultation and Non Labored Respirations; Negative Accessory Resp Muscle Use
Cardiac: Regular Rhythm and S1/S2; Negative Tachycardic
GI: Soft, Nondistended and Normal Bowel Sounds
Musculoskeletal: Other (left leg in surgical dressing)
Neuro: Awake, Alert, Oriented, AO x 3 and No Motor Deficits
Psych: Calm
#L tibialis anterior tendon rupture repair with cadaveric graft
- Continue with pain regimen. Strict nonweightbearing to left lower extremity per surgery.
- Consult PT/OT-recommend home health
- Patient on chronic morphine.
# Post op fever -
-urine culture no growth.
- Chest x-ray with atelectasis. No infiltrate. Denies any cough.
- Blood cultures remain negative. Influenza negative. COVID-negative.
- CT abdomen pelvis noted without any abscess. WBC normal
- Discussed with surgery and surgical site deemed not infected currently.
- Patient was prophylactically started on antibiotics and continues to spike fever.
-Unclear if inflammatory response as underwent extensive surgery. ESR normal. CRP elevated could be postsurgery vs due to RA
-No severe RLE edema. Doubt DVT as has already on anticoagulation. Drug fever is a possibility. Not on Lovenox.
- Antibiotics has been discontinued. Monitor off antibiotics.
# Acute thrombocytopenia
- Likely second inflammatory response
- Drop in platelet noted. Continue to monitor.
#hypertension
- continue metoprolol .
#hyperlipidemia
- continue ezetimibe
#hypothyroid
- continue levothyroxine
#fibromyalgia
#Chronic opioid dependent daily basis
- continue morphine
#rheumatoid arthritis
- continue methotrexate and prednisone
#GLORIA
uses CPAP at home
# History of DVT-continue Eliquis
#GERD
#restless leg syndrome
#depression
Code status: full code
DVT prophylaxis: Eliquis
Anticipated Discharge: 24 - 48 hours
Subjective/Interval History
-
Date of Service: July 12, 2025
Currently on iPad
Mornings are difficult to get up
Spiked fever overnight
Objective Data
-
Labs:
Laboratory Results
07/12/25
06:17
WBC 3.2 L
Hgb 12.5
Hct 37.2
Plt Count 86 L
Sodium 139
Potassium 3.8
Chloride 106
Carbon Dioxide 29
BUN 6 L
Creatinine 0.6
Glucose 119 H
Calcium 8.7
Vital Signs:
Vital Signs
Temp Pulse Resp BP Pulse Ox
97.5 F 58 17 135/63 97
07/12/25 07:34 07/12/25 07:34 07/12/25 07:34 07/12/25 07:34 07/12/25 07:34
I&O
07/11/25 07/12/25 07/13/25
06:59 06:59 06:59
Intake Total 1700 / 1700 1610 / 1610
Balance 1700 / 1700 1610 / 1610
--- NOTE | 2025-07-12 11:20 | CM ---
Patient seen at bedside on . Patient states she will be discharged tomorrow tentatively and that she will go home with [facility] to follow. CM will continue to follow for discharge planning needs.
Plan; home with [facility] to follow
[facility] discharge instructions fax: [phone]
[2025-07-12] MEDS: MS CONTIN (EXTENDED RELEASE) 30 MG PO ×2 (11:28→22:40)
[2025-07-12] MEDS: DILAUDID 1 MG PO (14:50)
[2025-07-12 15:00] VITALS: BP 144/73
[2025-07-12 16:48] VITALS: BP 124/61; PULSE 68; O2SAT 96
[2025-07-12] MEDS: TOPROL XL 50 MG PO (22:39)
[2025-07-12] MEDS: DELTASONE 5 MG PO (22:39)
[2025-07-12] MEDS: SEROQUEL 50 MG PO (22:39)
[2025-07-12 23:12] VITALS: BP 123/48
[2025-07-13] MEDS: SYNTHROID 25 MCG PO (06:01)
[2025-07-13 07:20] VITALS: BP 144/67
[2025-07-13 07:57] LABS: Hematocrit 36.8 % (37.0-47.0); Hemoglobin 12.3 g/dL (12.0-16.0); Mean Corp Hgb Conc. 33.4 g/dL (33.0-37.0); Mean Corpuscular Volume 94.6 fL (81.0-99.0); Platelet Count 77 10^3/uL (130-400); Red Cell Dist. Width 14.9 % (11.5-14.5)
[2025-07-13] MEDS: ZETIA 10 MG PO (08:02)
[2025-07-13] MEDS: CLARITIN 10 MG PO (08:02)
[2025-07-13] MEDS: ELIQUIS 5 MG PO (08:02)
[2025-07-13] MEDS: NON-FORMULARY ITEM 1 UNIT PO (08:04)
[2025-07-13 08:10] LABS: Blood Urea Nitrogen 7 mg/dl (7-17); Calcium 8.8 mg/dl (8.4-10.2); Carbon Dioxide 32 mmol/L (22-30); Chloride 107 mmol/L (98-107); Estimated Creatinine Clearance 103 ml/min; Glucose 122 mg/dl (70-99); Potassium 3.9 mmol/L (3.5-5.1); Sodium 141 mmol/L (135-145); eGFR > 60.00
--- NOTE | 2025-07-13 11:20 | W.PN.HOSP.TC ---
Addendum entered and electronically signed by Dmitriy Cuevas MD 07/13/25 12:26:
Discussed with infectious disease okay for discharge
Discussed with patient about low platelets and transaminitis. Patient states that she has been followed as outpatient for transaminitis which is chronic.
Recommended to repeat blood work with outpatient primary doctor to assess platelet levels. Patient also requesting additional pain medication for breakthrough pain and states she was able to tolerate Dilaudid. States she was allergic to
hydrocodone and oxycodone.
More than 30 minutes spent in discharge including
Final examination of the patient
Summarizing hospital stay
Instructions for continuing care to all relevant caregivers
Preparation of discharge records, prescriptions, and referral forms
Total time spent (in minutes): 53
Original Note:
Today's Communication/Plan
-
Continue to monitor temperature curve
ID recs
Pain control
Assessment / Plan
Assessment / Plan
General: Well Developed, Well Nourished, No Apparent Distress and Comfortable
HEENT: Normocephalic, Atraumatic and Moist Mucous Membranes
Respiratory: Clear to Auscultation and Non Labored Respirations; Negative Accessory Resp Muscle Use
Cardiac: Regular Rhythm and S1/S2; Negative Tachycardic
GI: Soft, Nondistended and Normal Bowel Sounds
Musculoskeletal: Other (left leg in surgical dressing)
Neuro: Awake, Alert, Oriented, AO x 3 and No Motor Deficits
Psych: Calm
#L tibialis anterior tendon rupture repair with cadaveric graft
- Continue with pain regimen. Strict nonweightbearing to left lower extremity per surgery.
- Consult PT/OT-recommend home health
- Patient on chronic morphine. 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
# Post op fever -
-urine culture no growth.
- Chest x-ray with atelectasis. No infiltrate. Denies any cough.
- Blood cultures remain negative. Influenza negative. COVID-negative.
- CT abdomen pelvis noted without any abscess. WBC normal
- Discussed with surgery and surgical site deemed not infected currently.
- Patient was prophylactically started on antibiotics and continues to spike fever and ID evaluation was requested.
-Unclear if inflammatory response as underwent extensive surgery. ESR normal. CRP elevated could be postsurgery vs due to RA
-No severe RLE edema. Doubt DVT as has already on anticoagulation. Drug fever is a possibility. Not on Lovenox.
-Antibiotics has been discontinued. Monitor off antibiotics. Frequency of fever has significantly decreased.
# Acute thrombocytopenia
- Likely secondary inflammatory response
- Drop in platelet noted. Continue to monitor. Will need repeat cbc as outpatient. Could also be due to methotrexate which she takes as outpatient
#hypertension
- continue metoprolol .
#hyperlipidemia
- continue ezetimibe
#hypothyroid
- continue levothyroxine
#fibromyalgia
#Chronic opioid dependent daily basis
- continue morphine
#rheumatoid arthritis
- Continue with prednisone. Hold methotrexate till platelets stabilizes.
#GLORIA
uses CPAP at home
# History of DVT-continue Eliquis
#GERD
#restless leg syndrome
#depression
Code status: full code
DVT prophylaxis: Eliquis
PT Home VN
Anticipated Discharge: Today
Subjective/Interval History
-
Date of Service: July 13, 2025
Eating breakfast currently without any difficulty. Denies increasing amount of pain in the left leg.
Wants to go home
Remains without cough, diarrhea, shortness of breath, abdominal pain.
Objective Data
-
Labs:
Laboratory Results
07/13/25
07:14
WBC 3.7 L
Hgb 12.3
Hct 36.8 L
Plt Count 77 L
Sodium 141
Potassium 3.9
Chloride 107
Carbon Dioxide 32 H
BUN 7
Creatinine 0.6
Glucose 122 H
Calcium 8.8
Vital Signs:
Vital Signs
Temp Pulse Resp BP Pulse Ox
97.8 F 61 16 144/67 99
07/13/25 07:20 07/13/25 07:20 07/13/25 07:20 07/13/25 07:20 07/13/25 07:20
I&O
07/12/25 07/13/25 07/14/25
06:59 06:59 06:59
Intake Total 1610 / 1610 1380 / 1380 240 / 240
Balance 1610 / 1610 1380 / 1380 240 / 240
--- NOTE | 2025-07-13 11:24 | W.PN.ID1 ---
Date of Service
Date of Service: July 13, 2025
Today's Communication
continue off abx.
Assessment / Plan
Postop fever
S/p left tibialis tendon repair (07/07/2022)
Mild leukopenia
Mild elevation in LFTs
RA
HTN
HLD
OA
GLORIA
Hx breast CA
Depression
Recommendations:
Exam remains nonrevealing for any infectious process.
Temperature curve overall improving.
Lack of white count speaks against an acute infection.
Suspect fever may have been secondary to drug fever (cefazolin), although cannot rule out other medications at this time.
Observe off antibiotics.
Would have PCP follow-up with LFTs and CBC as an outpatient.
Chief Complaint
-: Fever
Subjective / Review of Systems
Patient seen and examined. Overall feels well. For potential discharge today.
Vital Signs / Physical Exam
Vital Signs
Vital Signs
Temp Pulse Resp BP Pulse Ox
97.8 F 61 16 144/67 99
07/13/25 07:20 07/13/25 07:20 07/13/25 07:20 07/13/25 07:20 07/13/25 07:20
Physical Exam
Constitutional: No Acute Distress, Comfortable and Non-toxic
Cardiovascular: S1/S2; Negative S3/S4
Pulmonary: Non Labored
Gastrointestinal: Soft, Non Tender and Non Distended
Musculoskeletal: Other (Left leg/foot in splint and wrapped in Glen wrap.)
Skin: Negative Rash or Jaundice
Neurological: Awake and Alert
Psychological: Calm
Objective Data
Lab Data
Lab Results
07/13/25 07:14
07/13/25 07:14
ESR 20 mm/hour (0-20) 07/12/25 06:17
Estimated Creat Clear 103 ml/min 07/13/25 07:14
Total Bilirubin 0.9 mg/dl (0.2-1.3) 07/11/25 06:52
AST 96 U/L (14-36) H 07/11/25 06:52
ALT 91 U/L (0-35) H 07/11/25 06:52
Alkaline Phosphatase 60 U/L (38-126) 07/11/25 06:52
C-Reactive Protein 55.30 mg/L (0.0-10.00) H 07/12/25 06:17
Most recent labs reviewed.
Micro Results:
07/10/25 10:55 Blood Culture - Preliminary
Blood/Venous No Growth in 72 hours- Final report to follow
07/10/25 10:21 Blood Culture - Preliminary
Blood/Venous No Growth in 72 hours- Final report to follow
07/09/25 16:48 Urine Culture - Final
Urine NO GROWTH
07/10/25 12:39 Influenza Types A & B (XENIA) - Final
Nasal Swab Negative for Influenza A & B, NAAT
Negative results must be combined with clinical observations
and patient history.
Nucleic Acid Amplification test (NAAT)performed on the
[employer] platform.
Imaging:
07/10/2025 CT abdomen/pelvis with contrast: no significant acute abnormalities identified in the abdomen or pelvis. Please see full dictation for additional detail.
07/10/2025 CXR (2 view): no parenchymal opacification or vascular congestion. Please see full dictation for additional detail.
--- NOTE | 2025-07-13 11:33 | CM ---
Reviewed the chart notes and spoke with the patient at the bedside. IMM reviewed. Patient to be discharged to home today. Spouse will provide transportation. CM continues to be available to patient/family and is monitoring medical plan for needs
at discharge.
Plan: Discharge to home with [facility] services.
[2025-07-13] MEDS: MS CONTIN (EXTENDED RELEASE) 30 MG PO (11:58)
[2025-07-13 12:18] LABS: ALT (SGPT) 135 U/L (0-35); AST (SGOT) 149 U/L (14-36); Albumin 3.1 g/dl (3.5-5.0); Alkaline Phosphatase 91 U/L (38-126); Magnesium 1.6 mg/dl (1.6-2.3); Total Protein 5.6 g/dl (6.3-8.2)
--- NOTE | 2025-07-13 12:26 | W.DCSUMMARY ---
Discharge Summary
Discharge Data
Date of Admission: 07/07/25
Date of Discharge: 07/13/25
-
Pending Results: No
Hospital Course
64-year-old female past medical history of hypertension, hyperlipidemia, hypothyroidism, fibromyalgia, chronic opioid dependent daily basis, rheumatoid arthritis, GLORIA, DVT, GERD, restless leg syndrome, depression who is presenting for left tibialis
anterior tendon rupture repair with cadaveric graft by quad stayer. Postop patient was monitored in the hospital. Pain was controlled. Patient was eval by physical and Occupational Therapy. Patient was strict nonweightbearing to left lower
extremity. Patient was cleared for home VN. However postop course complicated with patient developing postop fever. Urine culture with no growth. Chest x-ray with atelectasis. No infiltrates. Patient did not have any cough. Influenza and
COVID was found to be negative. Blood cultures were checked and were found to be negative. Patient underwent CT abdomen pelvis which was negative for any abscess. WBC was normal. Discussed with surgery and surgical site deemed not infected.
Infectious disease was consulted. Patient was started on prophylactic antibiotic which was discontinued. Inflammatory markers was mildly elevated however could be due to postsurgery. Patient frequency of fever continued to decrease. Patient was
tolerating diet without any difficulty otherwise. Infectious disease evaluated patient. Patient frequency of fever continue to decrease. Patient was eager to get discharged. Patient also with acute thrombocytopenia which was deemed likely
secondary inflammatory response. Patient was encouraged to repeat blood work with primary doctor as outpatient. Patient said also chronic transaminitis and also recommended CMP while primary doctor. Patient will be discharged home. Patient was
recommended if develop persistent fever at home without alleviation with medication which include Tylenol and patient knows to return back to the ER. Patient case was discussed with infectious disease and okay for discharge.
Discharge Plan
-
Patient Disposition: Home with Home Care
Discharge Diagnosis/Procedures: Left tibialis anterior tendon rupture repair with cadaveric graft
Post operative fevers
Acute Thrombocytopenia
Mild acute on chronic transaminitis
Condition: Fair
Diet: Low Cholesterol
Activity: Do not bear weight L leg and Other activity
Additional Activity: Strict nonweightbearing to left lower extremity per surgery.
Driving Restrictions: Not until seen by your Dr
Blood Work: CBC and CMP in 1 week via primary doctor
Referrals:
Luis E Lauren MD [Active, Podiatry] - in one to two weeks
UNKNOWN,NO INTERVIEW [Family Provider]
Additional Discharge Medication Instructions: Hold methotrexate till improvement in platelets and liver function
Prescriptions:
New
hydromorphone 2 mg Tablet
1 mg PO BIDPRN PRN (Reason: severe breakthorough pain) Qty: 10 0RF
Continued
loratadine 10 MG tablet,disintegrating
10 mg PO DAILY
ezetimibe [Zetia] 10 MG tablet
10 mg PO DAILY
quetiapine 25 mg Tablet
50 mg PO HS
metoprolol succinate 50 mg Tablet Extended Release 24 Hr
50 mg PO HS
prednisone 5 mg Tablet
5 mg PO HS
morphine 30 mg Tablet Extended Release
30 mg PO Q12H
leucovorin calcium 15 mg Tablet
15 mg PO WEEKLY
Rx Instructions:
QTHURS
levothyroxine 25 mcg Tablet
25 mcg PO DAILY
Eliquis 5 mg Tablet
5 mg PO BID
Rx Instructions:
PER PT WILL START 5MG DOSE POST-OP;
Medical Cannabis
1 unit PO PRN PRN (Reason: PAIN)
Held
methotrexate sodium 2.5 mg Tablet
25 mg PO QWEEK
Hold Instructions: Resume on 07/28/25.
Rx Instructions:
10TABS QWEDN
Discharge Orders:
Discharge Patient (As Directed); Ordered 07/13/25
Ordered By: Dmitriy Cuevas
Discharge Date and Time
Print Language: GREENLANDIC
--- NOTE | 2025-07-13 12:26 | W.[place]-PDMP ---
[place]-PD[place]
-
Checked the [place]- Prescription Drug Monitoring Program website, no red flags identified; safe to proceed with prescription.
[2025-07-13] MEDS: TYLENOL 650 MG PO (13:55)
[2025-07-13 14:40] VITALS: BP 126/59
[2025-07-13 15:39] LABS: Absolute Neutrophils -Man Diff 1.4 10^3/uL (1.4-6.5)
[2025-07-13 15:40] LABS: Normal RBC Morphology Yes; Platelets Checked Yes; Total Cells Counted 100
== END 2025-07-13 14:44 | disposition home health service (06) | DRG 501 ==
LOC: 2 SOUTH 23:45
PROVIDERS: Internal Medicine; Nurse Practitioner Family; Student in an Organized Health Care Education/Training Program; ADMITTING PHYSICIAN Hospitalist; ATTENDING PHYSICIAN Hospitalist; OTHER PHYSICIAN Internal Medicine Infectious Disease
PROC: 5A09357 Assistance with Respiratory Ventilation, Less than 24 Consecutive Hours, Continuous Positive Airway Pressure (ICD-10-PCS; 2025-07-08)
PROC: 0LR Tendons, Replacement (ICD-10-PCS; 2025-07-09)
DX: M66.872 Spontaneous rupture of other tendons, left ankle and foot (principal); F11.20 Opioid dependence, uncomplicated; J98.11 Atelectasis; M20.12 Hallux valgus (acquired), left foot; E66.9 Obesity, unspecified; I83.90 Asymptomatic varicose veins of unspecified lower extremity; I10 Essential (primary) hypertension; E78.5 Hyperlipidemia, unspecified; F32.A Depression, unspecified; G47.33 Obstructive sleep apnea (adult) (pediatric); M79.7 Fibromyalgia; K21.9 Gastro-esophageal reflux disease without esophagitis; M47.812 Spondylosis without myelopathy or radiculopathy, cervical region; M06.9 Rheumatoid arthritis, unspecified; E03.9 Hypothyroidism, unspecified; G25.81 Restless legs syndrome; D69.6 Thrombocytopenia, unspecified; R50.82 Postprocedural fever; R74.01 Elevation of levels of liver transaminase levels; Z96.653 Presence of artificial knee joint, bilateral; Z85.3 Personal history of malignant neoplasm of breast; Z90.49 Acquired absence of other specified parts of digestive tract; Z88.6 Allergy status to analgesic agent; Z91.041 Radiographic dye allergy status; Z88.5 Allergy status to narcotic agent; Z88.8 Allergy status to other drugs, medicaments and biological substances; Z91.048 Other nonmedicinal substance allergy status; Z11.52 Encounter for screening for COVID-19; Z79.01 Long term (current) use of anticoagulants; Z79.890 Hormone replacement therapy
CPT/HCPCS: 71046; 72100; 74177; 80048; 80053; 80076; 81003; 81015; 82248; 83735; 84100; 85025; 85027; 85652; 86140; 87040; 87086; 87502; 87811; 94660; 97116; 97162; 97166; 97530; 97535; Q9967

== ENCOUNTER → 2025-08-10 09:16 | Outpatient (REF) | payer MEDICARE, OTHER, SELFPAY | LOC: HWRAD 09:16 | PROVIDERS: ATTENDING PHYSICIAN Physician Assistant; REFERRING PHYSICIAN Internal Medicine | DX: R79.89 Other specified abnormal findings of blood chemistry (principal); Z09 Encounter for follow-up examination after completed treatment for conditions other than malignant neoplasm; R63.0 Anorexia; R82.998 Other abnormal findings in urine; R50.9 Fever, unspecified | CPT/HCPCS: 76700 ==